=== PATIENT | female | born 1945 | race Caucasian/White ===

== ENCOUNTER 2018-06-23 07:24 | Day surgery (SDC) | payer OTHER ==
--- OUTSIDE RECORDS SUMMARY | 2018-06-23 07:29 | XMS REPORT | Clinical Summary ---
:1945 Author Organization [facility] Address [address] [place] [address] Care Team Providers Name Role Phone Oleksandr Gibson MD Primary Care Provider Allergies No Known Allergies Medications Medication Sig Dispensed Refills Start Date End Date Status lisinopril-hydrochlorothiazide 0 10/27/2017 Active (PRINZIDE,ZESTORETIC) 10-12.5 mg per tablet pantoprazole (PROTONIX) 40 MG EC 0 12/08/2017 Active tablet Active Problems Not on file Encounters Date Type Specialty Care Team Description 01/07/2018 Procedure visit Neurology Edouard Salgado Idiopathic peripheral neuropathy (Primary Dx); MD Sofia Numbness in feet Donald Duarte MD 12/30/2017 Hospital Encounter Radiology Edouard Salgado MD 12/30/2017 Office Visit Orthopedic Surgery Edouard Salgadoness in feet MD Sofia (Primary Dx) after 06/22/2017 Social History Tobacco Use Types Packs/Day Years Used Date Never Assessed Sex Assigned at Date Recorded Not on file Job Start Date Occupation Industry Not on file Not on file Not on file Travel History Travel Start Travel End No recent travel history available. Last Filed Vital Signs Vital Sign Reading Time Taken Blood Pressure - - Pulse - - Temperature - - Respiratory Rate - - Oxygen Saturation - - Inhaled Oxygen Concentration - - Weight 109 kg (240 lb) 12/30/2017 12:01 PM CDT Height 160 cm (5' 3") 12/30/2017 12:01 PM CDT Body Mass Index 42.51 12/30/2017 12:01 PM CDT Plan of Treatment Health Maintenance Due Date Last Done Comments BREAST CANCER SCREENING 08/26/1995 COLON CANCER SCREENING 08/26/1995 SHINGLES VACCINES (#1) 08/26/1995 65+ PNEUMOCOCCAL VACCINE (1 of 2 - PCV13) 2010 PNEUMOCOCCAL POLYSACCHARIDE VACCINE AGE 65 AND OVER 2010 INFLUENZA VACCINE 11/18/2017 Procedures Procedure Name Priority Date/Time Associated Diagnosis Comments XR LUMBAR SPINE Routine 12/30/2017 10:49 AM Numbness in feet Results for this COMPLETE W BENDING CDT procedure are in the results section. MRI SPINE EXTERNAL Routine 06/23/2017 11:20 AM Results for this STUDY LOTUS NOTES ADMINISTRATOR procedure are in the results section. after 06/22/2017 Results XR Lumbar Spine Complete W Flex and Ext (12/30/2017 10:49 AM CDT) Narrative Performed At 7 views of the lumbar spine are reviewed.These demonstrate a sagittal [facility] balance is slightly to the patient's left.Patient stands with a level pelvis.There is previous fusion from L4 to the sacrum which appears solid.Lateral view demonstrates sagittal balance that is slightly forward.The fusion from L4-S1 appears solid.There is marked disc degeneration at L3-L4 with a grade 1 spondylolisthesis and somewhat less anterolisthesis at L2-L3 as well as degeneration at L1-L2.There is no evidence of an acute fracture.Flexion-extension views demonstrate perhaps a mild exacerbation of the spondylolisthesis at L3-L4.Oblique views demonstrate a solid arthrodesis from L4 to the sacrum.There is facet joint osteoarthritis bilaterally at the more rostral levels of the lumbar spine Performing Organization Address [facility] Phone Number [facility] [address] [place] [address] MRI Spine External Study (06/23/2017 11:20 AM LOTUS NOTES ADMINISTRATOR) Narrative Performed At This exam was not acquired at a [facility] facility and has not been [facility] interpreted by a [facility] Provider.The exam was imported into our imaging system for comparisons purposes. Performing Organization Address City/[facility]/Zipcode Phone Number [facility] [address] [place] [address] after 06/22/2017 Insurance Payer Benefit Plan / Group Subscriber ID Type Phone Address MEDICARE MEDICARE PART A AND B xxxxxxxxxxx Medicare [place], [place] [employer] xxxxxxxx Commercial Advance Directives Patient has advance care planning documents on file. For more information, please contact:Luis M Welsh[address] [place] [address]
[2018-06-23] MEDS ORDERED: Ringers Lactate 1,000 ML IV ONE (08:08)
[2018-06-23] MEDS ORDERED: MIDAZOLAM HCL 2 MG/2 ML INJ ONE (09:09)
[2018-06-23] MEDS ORDERED: FENTANYL CITR 100 MCG/2 ML ONE (09:09)
[2018-06-23] MEDS ORDERED: LIDOCAINE 2% MPF 5 ML VIAL ONE (09:10)
[2018-06-23] MEDS ORDERED: PROPOFOL 200 MG/20 ML VIAL IV ONE (09:10)
[2018-06-23] MEDS ORDERED: LIDOCAINE 1.5% W/EPI AMP 5 ML ONE (09:24)
[2018-06-23] MEDS ORDERED: NA CHLORIDE 0.9% 1,000 ML ONE (09:24)
[2018-06-23] MEDS ORDERED: KETOROLAC 30 MG/ML INJ ONE (09:55)
--- NOTE | 2018-08-23 02:05 | OP ---
Date of Procedure: 06/23/2018 Surgeon: Janelle Galdamez MD Wealth Management Advisor: No assistants. Preoperative Diagnosis: Postmenopausal bleeding. Postoperative Diagnoses: Postmenopausal bleeding and endometrial mass. Procedures Performed: Hysteroscopy, dilation and curettage. Anesthesia: MAC plus paracervical block. Specimens: Endometrial curettings. Estimated Blood Loss: Minimal EBL. Complications: No complications. Drain: No drains. Condition: Stable. Findings: Right lateral posterior wall with irregular polypoid masses, possible carcinoma. Description Of Procedure: The patient is a 72-year-old with postmenopausal bleeding. Transvaginal u ltrasound showed thickened endometrium. Consented for endometrial cavity visualization and sampling to rule out atypia or malignancy. She was consented appropriately after appropriate preoperative car e was taken. She was re-consented in the preop, taken to the OR, and placed in supine fashion. Afte r MAC was given, she was placed in dorsal lithotomy position using Oleg stirrups. Pelvic exam perfo rmed. Exam difficult due to her body habitus. Speculum placed to expose the cervix. Prep x3 with B etadine was done after injecting the anterior lip with 1.5% lidocaine mixed with epinephrine 1:200,00 0 about 5 cc. Then at 4 and 8 o'clock positions, 3 cc each was given. A SlimLine diagnostic hystero scope was introduced through the cervical canal, traversed under direct visualization, and entered in to the uterine cavity. Right posterolateral mass was seen on the endometrial canal wall. There were multiple tiny polypoid masses and appeared to be irregular. Both the tubal ostia were visualized. Scope was removed. Curettings were performed with a #2 curette. Adequate sampling was obtained. Th e patient recovered from anesthesia and taken to the PACU in stable condition. EBL was minimal. Ins trument, needle, and sponge counts were correct before the end of the case. She will follow up with me in 1 week. VERONICA/AMANDA Voice ID: [id number] Report ID: [id number]
== END 2018-06-23 10:35 | disposition home or self-care (01) ==
LOC: OR 07:24
PROVIDERS: ATTEND Obstetrics & Gynecology
PROC: 0UJD8ZZ Inspection of Uterus and Cervix, Via Natural or Artificial Opening Endoscopic (ICD-10-PCS; 2018-06-23)
PROC: 0UDB7ZX Extraction of Endometrium, Via Natural or Artificial Opening, Diagnostic (ICD-10-PCS; principal; 2018-06-23 09:00)
DX: C54.1 Malignant neoplasm of endometrium (principal); N81.12 Cystocele, lateral; I10 Essential (primary) hypertension; J45.909 Unspecified asthma, uncomplicated; K21.9 Gastro-esophageal reflux disease without esophagitis; G47.30 Sleep apnea, unspecified; Z79.82 Long term (current) use of aspirin; Z79.899 Other long term (current) drug therapy; Z82.49 Family history of ischemic heart disease and other diseases of the circulatory system
CPT/HCPCS: 88305; 58558; J2704; J2250; J3010; J2001; J7030

== ENCOUNTER 2020-05-03 11:12 | Day surgery (SDC) | payer OTHER ==
--- OUTSIDE RECORDS SUMMARY | 2020-05-03 11:30 | XMS REPORT | Clinical Summary ---
:1945 Author Organization [facility] Address [address] [place] [id number] Care Team Providers Name Role Phone Oleksandr Gibson MD Primary Care Provider Allergies No Known Active Allergies Medications Medication Sig Dispensed Refills Start Date End Date Status lisinopril-hydrochlorothiazide 0 8 Active (PRINZIDE,ZESTORETIC) 10-12.5 mg per tablet pantoprazole (PROTONIX) 40 MG EC 0 018 Active tablet Active Problems Not on file Surgical History Surgery Date Site/Laterality Comments SPINE SURGERY Social History Tobacco Use Types Packs/Day Years Used Date Never Assessed Sex Assigned at Date Recorded Not on file Last Filed Vital Signs Not on file Plan of Treatment Health Maintenance Due Date Last Done Comments COVID-19 VACCINE (1 of 2) 1961 BREAST CANCER SCREENING 08/26/1995 COLONOSCOPY SCREENING 08/26/1995 SHINGLES VACCINES (#1) 08/26/1995 65+ PNEUMOCOCCAL VACCINE (1 of 1 - PPSV23) 2010 INFLUENZA VACCINE 11/19/2019 Results Not on fileafter 05/03/2019 Insurance Payer Benefit Plan / Subscriber ID Effective Phone Address T ype Group Dates MEDICARE MEDICARE PART [id number] [facility] [place] [place] A AND B nt [employer] [id number] 2017-[employer] marti Advance Directives For more information, please contact: [phone] Type Date Recorded Patient Sat Math Tutor Explanati on Advance Directives, Living Will and Medical Power of Injection Molding Machine Tender
--- OUTSIDE RECORDS SUMMARY | 2020-05-03 11:30 | XMS REPORT | Continuity of Care Document ---
:1945 Author Organization [facility] t Address [address] [place] [address] Care Team Providers Name Role Phone BRINA Primary Care Physician Unavailable SYSTEM, NOT IN Attending Clinician Unavailable BRINA Attending Clinician Unavailable Brina HERNANDEZ Attending Clinician Estephania DIALLO Attending Clinician MARIANA Attending Clinician Unavailable Payers Payer Name Policy Type Policy Number Effective Date Expiration Date S marco MEDICARE PART A [id number] 2010 AND B 00:00:00 FINN [id number] 2013 00:00:00 Problems Condition Condition Condition Status Onset Resolution Last Treating Co mments Source Name Details Category Date Date Treatment Clinician Date Primary Primary Disease Active osteoarthr osteoarthr 12-04 An derso itis of itis of 00:00: n left knee left knee 00 Urinary Urinary Disease Active 2019-0 incontinen incontinen 12-04 An derso ce ce 00:00: n 00 Urgent Urgent Disease Active 2019- desire to desire to 12-04 Andrey rso urinate urinate 00:00: n 00 Herniation Herniation Disease Active 2020-0 M D of rectum of rectum 12-04 Andrey rso into into 00:00: n vagina vagina 00 History of History of Disease Active 2019 M D malignant malignant 12-09 Andrey rso neoplasm neoplasm 00:00: n of of 00 endometriu endometriu m m Postoperat Postoperat Disease Active M D aurora visit aurora visit 08-13 Andrey rso 00:00: n 00 Hypertensi Hypertensi Disease Active M D on on 07-22 Anderso 00:00: n 00 Sleep Sleep Disease Active apnea apnea 07-22 Anderso 00:00: n 00 Gastroesop Gastroesop Disease Active M D hageal hageal 07-22 Anderso reflux reflux 00:00: n disease disease 00 Malignant Malignant Disease Active neoplasm neoplasm 07-06 Dagoberto o of of 00:00: n endometriu endometriu 00 m m Idiopathic Idiopathic Disease Active M D peripheral peripheral 04-20 An derso neuropathy neuropathy 00:00: n 00 Contusion Contusion Diagnosis Active [facility], [facility] initial initial l encounter encounter Outp ati ent Clinics Primary Primary Problem Active [facility] osteoarthr osteoarthr Cheryl kes - itis of itis of Memoria left knee left knee l Outpati ent Clinics Pain, Pain, Diagnosis Active [facility] joint, joint, [facility], [facility] right right l Outpati ent Clinics History of History of Problem Resolve [facility] asthma asthma d [facility] [place] [facility] History of History of Problem Resolve [facility] Gastric Gastric d ity of reflux reflux [place] [facility] History of History of Problem Resolve [facility] hypertensi hypertensi d it y of on on [place] [facility] Transfusio Transfusio Problem Resolve Univers n history n history d [facility] [place] [facility] Cystocele, Cystocele, Problem Active U nivers lateral lateral [facility] [place] [facility] Incomplete Incomplete Problem Active U nivers uterovagin uterovagin it y of al al [place] prolapse prolapse Physic i ans Cystocele, Cystocele, Problem Active U nivers midline midline it[facility] of [place] [facility] Enterocele Enterocele Problem Active U nivers [facility] [place] [facility] Fecal Fecal Problem Active Univers smearing smearing [facility] [place] [facility] Urinary Urinary Problem Active [facility] frequency frequency [facility] [place] [facility] Post-opera Post-opera Problem Active U nivers tive state tive state it y of [place] [facility] Allergies, Adverse Reactions, Alerts Allergy Allergy Status Severity Reaction(s) Onset Inactive Treating Comm ents Source Name Type Date Date Clinician Dartonicet Adverse Active Info Not [facility] -N 100 Reaction Available [facility] MORPHINE Adverse Active Info Not [facility] Reaction Available [facility] Sudafed Adverse Active Info Not [facility] Reaction Available [facility] Phenerga Adverse Active Info Not [facility] Percocet Adverse Active Info Not [facility] Keflex Adverse Active Info Not [facility] Reaction [facility] Claritin Adverse Active Info Not [facility] -D 12 Reaction Available [facility] Claritin drug Active [facility] allergy [facility] [place] [facility] Darvocet drug Active Univers -N 50 allergy ity of TABS [place] [facility] Keflex drug Active Univers TABS allergy [facility] [place] [facility] morphine drug Active [facility] allergy [facility] [place] [facility] Percocet drug Active Univers TABS allergy [facility] [place] [facility] Phenerga drug Active Univers n TABS allergy [facility] [place] [facility] Sudafed drug Active [facility] allergy [facility] [place] [facility] Family History Family Member Diagnosis Comments Start Date Stop Date Source Unknown Family Family history Family History Un iversity of Member of [facility] ns disorder Natural daughter -Other cancer MD Alba zelaya Social History Social Habit Start Date Stop Date Quantity Comments Source Sex Assigned At F MD [place] on Tobacco use and 2019-12-05 2019-12-05 Never used MD [place] on exposure 00:00:00 00:00:00 Alcohol intake 2019-12-05 2019-12-05 Current MD [place] n 00:00:00 00:00:00 non-drinker of alcohol (finding) Smoking Status Start Date Stop Date Source Never smoker MD Gu Medications Ordered Filled Start Stop Current Ordering Indication Dosage Frequency Signature Comments Components Source Medication Medication Date Date Medication? Clinician (SIG) Name Name UNABLE TO 2020 2020- No daily. MD LADD 12-04 Tita 16:40: 00:00 n 36 :00 fexofenadin Yes daily. MD castle (WENDY 12-04 Anderso ALLERGY) 16:40: n 180 mg 21 tablet ASPIRIN LOW 2020-0 Yes daily. MD DOSE ORAL 8-17 Anderso 16:40: n 21 omega 2020-0 Yes daily. 3-dha-epa-f 8-17 Andlayo blayne oil 16:40: n (FISH OIL) 21 1,000 mg (120 mg-180 mg) cap gabapentin 2020-0 Yes 3 (three) (NEURONTIN) 8-17 times a Francesco so 800 mg 16:40: day. n tablet 21 niacin 500 2020-0 Yes twice MD mg tablet 8-17 daily. Anderso 16:40: n 21 lisinopril- 2020-0 Yes daily. hydrochloro 8-17 Anderso thiazide 16:40: n (PRINZIDE,Z 21 ESTORETIC) 20-12.5 mg per tablet acetaminoph 2020-0 Yes at en (TYLENOL 8-17 bedtime. Andrey rso EXTRA 16:40: n STRENGTH 21 ORAL) cholecalcif 2020-0 Yes twice james, 8-17 daily. Tita vitamin D3, 16:40: n (VITAMIN 21 D3) 1,000 unit capsule cyanocobala 2020-0 Yes 1000ug Take 1,000 MD min 8-17 mcg by Tita (vitamin 16:40: mouth n B-12) 1000 21 daily. mcg tablet famotidine 2020-0 Yes daily. (PEPCID) 40 7-19 Anderso mg tablet 00:00: n 00 pantoprazol 2020-0 Yes daily. MD castle 2-24 Tita (PROTONIX) 19:18: n 40 mg EC 29 tablet traMADol traMADol Yes FRANCISCO TAKE 1 Univers HCl - 50 MG HCl - 50 MG 3-29 MARIANA M.D. TABLET ity of Oral Tablet Oral Tablet 00:00: EVERY 6 [place] 00 HOURS Physici NEEDED FOR ans POST OPERATIVE PAIN. Colace 100 Colace 100 Yes FRANCISCO Q0.5D TAKE 1 Univers MG Oral MG Oral 3-28 MARIANA M.D. CAPSULE i ty of Capsule Capsule 00:00: TWICE [place] 00 DAILY. Physici ans Ibuprofen Ibuprofen Yes FRANCISCO 1 Q6H TAKE 1 Univers 600 MG Oral 600 MG Oral 3-28 MARIANA M.D. TABLET ity of Tablet Tablet 00:00: EVERY 6 [place] 00 HOURS PRN Physici pain ans Ondansetron Ondansetron Yes FRANCISCO Q4H TAKE 1 Univers HCl - 4 MG HCl - 4 MG 3-28 MARIANA M.D. TABLET ity of Oral Tablet Oral Tablet 00:00: EVERY 4 [place] 00 HOURS PRN Physici nausea ans pantoprazol Yes [place] e 8-21 [facility] (PROTONIX) 00:00: st 40 MG EC 00 tablet lisinopril- Yes [place] hydrochloro 7-10 [facility] thiazide 00:00: st (PRINZIDE,Z 00 ESTORETIC) 10-12.5 mg per tablet Aspir-81 Aspir-81 Yes Dionte [address] [facility] Pantoprazol Pantoprazol Yes Dionte not [facility] e Sodium e Sodium Ledezma defined Cheryl kes - [facility] Wendy Wendy Yes Dionte not [facility] defined [facility]ics Fish Oil Fish Oil Yes Dionte [address] [facility] Lisinopril- Lisinopril- Yes Dionte not [facility] Hydrochloro Hydrochloro [place]ede[place]ma defined [facility] - thiazide thiazide [facility] Tylenol Tylenol Yes Dionte [address] [facility] [place] as needed [facility] Vitamin B12 Vitamin B12 Yes Dionte [address] [facility] Vitamin D3 Vitamin D3 Yes Dionte [address] [facility] Gabapentin Gabapentin Yes Dionte not [facility] defined [facility] Niacin ER Niacin ER Yes Dionte [address] [facility] [place] with food [facility] Gabapentin Gabapentin Yes Uni vers 800 MG Tab 800 MG Tab ity of (OR) - (OR) - [place] [id number] P hysici ivated ivated ans Aspirin Low Aspirin Low Yes U nivers Dose 81 MG Dose 81 MG ity of TABS TABS [place] [facility] Lisinopril- Lisinopril- Yes U nivers hydroCHLORO hydroCHLORO i ty of thiazide thiazide [place] 20-12.5 MG 20-12.5 MG Phy sici Oral Tablet Oral Tablet a ns Pantoprazol Pantoprazol Yes U nivers e Sodium 40 e Sodium 40 i ty of MG Oral MG Oral [place] Tablet Tablet Physici Delayed Delayed ans Release Release Fish Oil Fish Oil Yes Univers CAPS CAPS ity of [place] [facility] Vitamin D-3 Vitamin D-3 Yes U nivers TABS TABS ity of [place] [facility] Vitamin Vitamin Yes Univers B-12 TABS B-12 TABS ity o f [place] [facility] Wendy 180 Wendy 180 Yes U nivers MG TABS MG TABS ity of [place] [facility] Niacin TABS Niacin TABS Yes U nivers [facility] [place] [facility] Tylenol 500 Tylenol 500 Yes U nivers MG CAPS MG CAPS ity of [place] [facility] Vital Signs Vital Name Observation Time Observation Value Comments Source Systolic blood 2019-12-05 133 mm[Hg] MD Gu pressure 16:28:19 Diastolic blood 2019-12-05 77 mm[Hg] MD Gu pressure 16:28:19 Heart rate 2019-12-05 106 /min MD Gu 16:28:19 Body temperature 2019-12-05 37.11 Lita MD Gu 16:28:19 Respiratory rate 2019-12-05 18 /min MD Gu 16:28:19 Body weight 2019-12-05 107 kg MD Gu 16:28:19 BMI 2019-12-05 44.83 kg/m2 MD Gu 16:28:19 Oxygen saturation 2019-06-13 98 /min MD Tita liz in Arterial blood 19:00:44 by Pulse oximetry BP Systolic 2018-10-15 132 mm[Hg] Location: [facility] 10:55:00 Position: [place] Physician s Sitting BP Diastolic 2018-10-15 81 mm[Hg] Location: [facility] 10:55:00 Position: [place] Physician s Sitting Height 2018-10-15 64 [in_us] [facility] 10:55:00 [place] [facility] s Weight 2018-10-15 242 [lb_av] [facility] 10:55:00 [place] [facility] s Body Mass Index 2018-10-15 41.54 kg/m2 University o f Calculated 10:55:00 [place] [facility] s Temperature 2018-10-15 98 [degF] Method: Oral [facility] 10:55:00 [place] [facility] s Heart Rate 2018-10-15 102 /min Location: L [facility] 10:55:00 Brachial [place] [facility] s Artery; BP Systolic 2018-09-10 138 mm[Hg] Location: [facility]; [facility] :51:00 Position: [place] Physician s Sitting BP Diastolic 2018-09-10 82 mm[Hg] Location: [facility]; [facility] 10:51:00 Position: [place] Physician s Sitting Height 2018-09-10 64 [in_us] University 10:51:00 [place] [facility] s Weight 2018-09-10 240 [lb_av] University of 10:51:00 [place] [facility]ician s Body Mass Index 2018-09-10 41.2 kg/m2 University o f Calculated 10:51:00 [place] [facility] s Temperature 2018-09-10 98.6 [degF] Method: Oral [facility] 10:: [place] [facility] s Heart Rate 2018-09-10 90 /min Location: L [facility] 10:51:00 Brachial [place] [facility] s Artery; BP Systolic 2018-08-13 135 mm[Hg] Location: [place]; [facility] :52:00 Position: [place] Physician s Sitting BP Diastolic 2018-08-13 74 mm[Hg] Location: [place]; [facility] :52:00 Position: [place] Physician s Sitting Height 2018-08-13 64 [in_us] University of 10:52:00 [place] [facility] s Weight 2018-08-13 240 [lb_av] University of 10:52:00 [place] [facility] s Body Mass Index 2018-08-13 41.2 kg/m2 University o f Calculated 10:52:00 [place] [facility] s Temperature 2018-08-13 98.9 [degF] Method: Oral University of 10:52:00 [place] [facility] s Heart Rate 2018-08-13 93 /min Location: R [facility] 10:52:00 Brachial [place] [facility] s Artery; BP Systolic 2018-07-15 128 mm[Hg] Location: [place]; [facility] :32:00 Position: [place] Physician s Sitting BP Diastolic 2018-07-15 60 mm[Hg] Location: [place]; [facility] :32: Position: [place] Physician s Sitting Temperature 2018-07-15 98 [degF] University :32:00 [place] [facility] s Height 2018-07-15 64 [in_us] University of :32:00 [place] [facility] s Weight 2018-07-15 238 [lb_av] University of 14:32:00 [place] Phys[facility] s Body Mass Index 2018-07-15 40.85 kg/m2 University o f Calculated 14:32:00 [place] Physician s BP Systolic 2018-07-13 108 mm[Hg] Location: [facility]; [facility] 11:33:00 Position: [place] Physician s Sitting BP Diastolic 2018-07-13 64 mm[Hg] Location: [facility]; [facility] 11:33: Position: [place] Physician s Sitting Height 2018-07-13 64 [in_us] [facility] 11:33: [place] Physician s Weight 2018-07-13 238.5625 [lb_av] [facility] 11:33: [place] Physician s Body Mass Index 2018-07-13 40.95 kg/m2 University o f Calculated 11:33:00 [place] [facility] s Temperature 2018-07-13 98.3 [degF] [facility] 11:33: [place] Physician s Procedures Procedure Date / Time Performing Clinician Source Performed [QLH] CULTURE, URINE, 2018-07-13 00:00:00 [facility] ROUTINE Physicians History of Cholecystectomy [facility] Physicians History of Back surgery [facility] Physicians Plan of Care Planned Activity Planned Date Details Comments Source Future Scheduled 2019-11-19 INFLUENZA VACCINE [place] [facility] 00:00:00 [code = INFLUENZA VACCINE] Future Scheduled 2010 65+ PNEUMOCOCCAL [place] [facility] 00:00:00 VACCINE (1 of 1 - PPSV23) [code = 65+ PNEUMOCOCCAL VACCINE (1 of 1 - PPSV23)] Future Scheduled 1995-08-26 [facility]EN[facility] [code = BREAST CANCER SCREENING] Future Scheduled 1995-08-26 COLONOSCOPY SCREENING [facility]ain Test 00:00:00 [code = COLONOSCOPY SCREENING] Future Scheduled 1995-08-26 SHINGLES VACCINES (#1) [place] [facility] 00:00:00 [code = SHINGLES VACCINES (#1)] Future Scheduled 1961 COVID-19 VACCINE (1 of [place] [facility] 00:00:00 2) [code = COVID-19 VACCINE (1 of 2)] Encounters Start End Encounter Admission Attending Care Care Encounter Source Date/Time Date/Time Type Type Clinicians Facility Department ID 2019-12-12 Outpatient SYSTEM, [facility] SARAY [id number] 11:27:18 PROVIDER Dagoberto liz 2019-10-11 Outpatient APPLE, SARAY MDA [id number] 15:17:08 PROVIDER Dagoberto liz 2020-12-03 2020-12-03 Outpatient DARA GONSALVES MDA MDA [id number] 00:00:00 00:00:00 ODELL liz 2019-12-05 2019-12-05 Outpatient DARA GONSALVES MDA MDA [id number] 11:24:50 11:24:50 ODELL liz 2018-10-15 2018-10-15 Appointmen CATHIE PEÑA Urogynecolo [id number] Univers 11:00:00 11:00:00 t; FRANCISCO PEÑA gy Center - ity neris SINGH M.D. [facility] Physici ans 2018-09-28 2018-09-28 [facility] [id number] [facility] 15:05:00 15:05:00 t [facility] ent Clinics 2018-09-10 2018-09-10 Appointmen CATHIE PEÑA UroGynecolo [id number] Univers 11:00:00 11:00:00 t; FRANCISCO PEÑA gy Center it y neris SINGH M.D. [facility] Anni Physici ans 2018-08-13 2018-08-13 Appointmen CATHIE PEÑA UroGynecolo [id number] Univers 11:00:00 11:00:00 t; FRANCISCO PEÑA gy Center it y neris SINGH M.D. [facility] Anni Physici ans 2018-07-27 2018-07-27 Appointmen CATHIE PEÑA UTP [id number] Univers 10:30:00 10:30:00 t; FRANCISCO PEÑA ity of BRANDON, M.D. [place] M.D. Physici ans 2018-07-27 2018-07-27 Outpatient MHFB [facility]FB [id number] [facility] 05:19:00 05:19:00 2018-07-15 2018-07-15 Appointmen CATHIE PEÑA UroGynecolo [id number] Univers 14:50:00 14:50:00 t; FRANCISCO PEÑA gy Center it y of Anni SINGH [facility] Anni Physici ans 2018-07-15 2018-07-15 Appointmen MARIANACATHIE UroGynecolo [id number] Univers 14:30:00 14:30:00 t; FRANCISCO PEÑA gy Center it y of Anni SINGH [facility] Anni Physici ans 2018-07-13 2018-07-13 Appointmen MARIANA CATHIE UroGynecolo [id number] Univers 11:20:00 11:20:00 t; FRANCISCO PEÑA gy Center it y of Anni SINGH [facility] Anni Physici ans Results Test Description Test Time Test Comments Results Result Comments Source [[facility]] CULTURE, URINE, ROUTINE 2018-07-13 14:56:01 Test Item Value Reference Range Interpretation Comme nts FINAL REPORT (test code = FINAL REPORT) No Growth [facility][O] Urine Dipstick (In Office)2018-07-13 13:10:00 Test Item Value Reference Range Interpretation Comments Glucose (test code = Glucose) neg N LEUKOCYTES (test code = LEUKOCYTES) neg N NITRITE; Normal (test code = 16108-4) neg N UROBILINOGEN; Normal (test code = 0.2 N 11872-5) PROTEIN; Normal (test code = 47738-6) neg N pH (test code = pH) 7.5 N URINE BLOOD; Normal (test code = neg N 32281-5) SPECIFIC GRAVITY; Normal (test code = 1.015 N 2965-2) KETONES; Normal (test code = 26086-6) neg N BILIRUBIN; Normal (test code = 76625-0) neg N [facility]
[2020-05-03] MEDS ORDERED: Ringers Lactate 1,000 ML IV ONE (12:07)
[2020-05-03] MEDS ORDERED: propofoL 200 MG/20 ML VIAL IV ONE (14:41)
[2020-05-03] MEDS ORDERED: FENTANYL CITR 100 MCG/2 ML ONE (14:41)
[2020-05-03] MEDS ORDERED: LIDOCAINE 1% MPF 5 ML VIAL ONE (14:41)
--- NOTE | 2020-05-03 15:09 | P.OP ---
Preoperative diagnosis: RIGHT pubic Infected Cyst Postoperative diagnosis: RIGHT pubic Infected Cyst Primary procedure: Wide local excision of RIGHT pubic Infected Cyst Secondary procedure: Application of GIRISH Negative pressure wound therapy Anesthesia: GETA + Local Estimated blood loss: <5cc Specimen: debridement tissue Findings: indurated, infected right groin pubic cyst Complications: None Drain(s): Other (GIRISH with iodoform wick) Implants: iodoform with girish Transferred to: Recovery Room Condition: Good
[2020-05-03] MEDS ORDERED: ONDANSETRON 4 MG/2 ML VIAL ONE (15:10)
[2020-05-03 15:32] VITALS: O2SAT 98
[2020-05-03 16:09] VITALS: BP 128/62; TEMP 97.2
[2020-05-03] MEDS ORDERED: CODEINE 30MG/APAP 300MG TAB ONE (16:13)
--- NOTE | 2020-05-03 18:06 | OP ---
Date of Procedure: 05/03/2020 Surgeon: Karl Arias MD, Preoperative Diagnosis: Right pubic infected cyst. Postoperative Diagnosis: Right pubic infected cyst. Procedures Performed: 1.A wide local excision of right pubic infected cyst. 2.Complication of GIRISH negative pressure wound therapy. Anesthesia: General endotracheal plus local with 0.25% Marcaine without epinephrine. Estimated Blood Loss: Less than 5 cc. Specimen: Debridement tissue. Findings: Indurated right groin pubic cyst. Complications: None. Drains: Iodoform wick was placed with GIRISH negative pressure wound therapy on top of wound. Implants: Iodoform packing quarter-inch with GIRISH negative pressure wound therapy as above. Disposition: The patient was transferred to recovery room in good condition. Procedure In Detail: After informed consent was obtained, the patient was brought to the operating r oom, prepped and draped in the usual sterile fashion. After adequate anesthesia was achieved, a curv ilinear incision was made over an area of induration in the right pubic/inguinal crease area down thr ough subcutaneous tissues with electrocautery and dissected down around an infected cystic structure. This had evidence of inflammation and a wound on top with previous drainage occurring. The area wa s removed in its entirety and sent off for pathologic examination. The wound bed was then irrigated copiously and hemostasis was achieved with electrocautery. At this point, I reapproximated the edges of the wound with a 2-0 nylon suture in interrupted fashion and placed a quarter-inch iodoform wick into the wound and placed the GIRISH negative pressure wound therapy device over the top and applied th e device successfully. The patient tolerated the procedure well without evidence of complication and transferred to PACU in good condition. All counts were correct at the end of the case. TK/MODL Voice ID: [id number] Report ID: [id number]
== END 2020-05-03 16:29 | disposition home or self-care (01) ==
LOC: OR 11:12
PROVIDERS: ATTEND Surgery
PROC: 0JBC0ZZ Excision of Pelvic Region Subcutaneous Tissue and Fascia, Open Approach (ICD-10-PCS; principal; 2020-05-03 15:00)
DX: L72.8 Other follicular cysts of the skin and subcutaneous tissue (principal); Z20.822 Contact with and (suspected) exposure to COVID-19
CPT/HCPCS: 87070; 87205; 88304; 87075; 87077 ×2; 87186 ×2; 49204; U0002; J2704; J3010; J7120; J2405; 88305

== ENCOUNTER 2020-05-05 17:50 | Emergency (ER) | payer OTHER ==
--- OUTSIDE RECORDS SUMMARY | 2020-05-05 17:53 | XMS REPORT | Clinical Summary ---
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
--- OUTSIDE RECORDS SUMMARY | 2020-05-05 17:54 | XMS REPORT | Continuity of Care Document ---
:1945 Author Organization [facility] t Address [address] [place] [address] Care Team Providers Name Role Phone BRINA Primary Care Physician Unavailable SYSTEM, NOT IN Attending Clinician Unavailable BRINA Attending Clinician Unavailable Brina HERNANDEZ Attending Clinician Estephania DIALLO Attending Clinician MARIANA Attending Clinician Unavailable Payers Payer Name Policy Type Policy Number Effective Date Expiration Date S marco MEDICARE PART A [id number] 2010 AND B 00:00:00 FINN [id number] 2013 00:00:00 Problems Condition Condition Condition Status [...] -N 100 Reaction Available [facility] MORPHINE Adverse Active Info Not [facility] Reaction Available [facility] Sudafed Adverse Active Info Not [facility] Reaction Available [facility] Phenerga Adverse Active Info Not [facility] Percocet Adverse Active Info Not [facility] Keflex Adverse Active Info Not [facility] Reaction [facility] Claritin Adverse Active Info Not [facility] t -D 12 Reaction Available [facility] Claritin drug Active Univers allergy ity of [place] [facility] Darvocet drug Active Univers -N 50 allergy ity of TABS [place] [facility] Keflex drug Active Univers TABS allergy ity of [place] [facility] morphine drug Active Univers allergy ity of [place] [facility] Percocet drug Active Univers TABS allergy ity of [place] [facility] Phenerga drug Active Univers n TABS allergy ity of [place] [facility] Sudafed drug Active Univers allergy ity of [place] [facility] Family History Family Member Diagnosis Comments Start Date Stop Date Source Unknown Family Family history Family History Un iversity of Member of [place] ns disorder Natural daughter -Other cancer MD [...] Gabapentin Yes Dionte not C [facility] defined [facility] Niacin ER Niacin ER Yes Dionte [address] [facility] with food [facility] Gabapentin Gabapentin Yes Uni vers 800 MG Tab 800 MG Tab ity of (OR) - (OR) - [place] [id number] P hysici ivated ivated ans Aspirin Low Aspirin Low Yes U nivers Dose 81 MG Dose 81 MG ity of TABS TABS [place] [facility] Lisinopril- Lisinopril- Yes U nivers hydroCHLORO hydroCHLORO i ty of thiazide thiazide [place] 20-12.5 MG 20-12.5 MG Phy sici Oral Tablet Oral Tablet a ns Pantoprazol Pantoprazol Yes U nivers e Sodium 40 e Sodium 40 i ty of MG Oral MG Oral [place] Tablet Tablet Physici Delayed Delayed ans Release Release Fish Oil Fish Oil Yes Univers CAPS CAPS ity of [place] [facility] Vitamin D-3 Vitamin D-3 Yes U nivers TABS TABS ity of [place] [facility] Vitamin Vitamin Yes Univers B-12 TABS B-12 TABS ity o f [place] [facility] Wendy 180 Wendy 180 Yes U nivers MG TABS MG TABS ity of [place] [facility] Niacin TABS Niacin TABS Yes U nivers ity of [place] [facility] Tylenol 500 Tylenol 500 Yes U nivers MG CAPS MG CAPS ity of [place] [facility] Vital Signs Vital Name Observation [...] oximetry BP Systolic 2018-10-15 132 mm[Hg] Location: [facility] 10:55:00 Position: [place] Physician s Sitting BP Diastolic 2018-10-15 81 mm[Hg] Location: [facility] 10:55:00 Position: [place] Physician s Sitting Height 2018-10-15 64 [in_us] [facility] 10:55:00 [place] Physician s Weight 2018-10-15 242 [lb_av] [facility] 10:55:00 [place] Physician s Body Mass Index 2018-10-15 41.54 kg/m2 University o f Calculated 10:55:00 [place] Physician s Temperature 2018-10-15 98 [degF] Method: Oral [facility] 10:55:00 [place] Phys[facility] s Heart Rate 2018-10-15 102 /min Location: L [facility] 10:55:00 Brachial [place] [facility] Artery; BP Systolic 2018-09-10 138 mm[Hg] [place] [facility] [facility] :51:00 Position: [place] Physician s Sitting BP Diastolic 2018-09-10 82 mm[Hg] [place]: [facility] [facility] 10:51:00 Position: [place] Physician s Sitting Height 2018-09-10 64 [in_us] University 10:51:00 [place] [facility] s Weight 2018-09-10 240 [lb_av] University of 10:51:00 [place] [facility]ician s Body Mass Index 2018-09-10 41.2 kg/m2 University o f Calculated 10:51:00 [place] Physician s Temperature 2018-09-10 98.6 [degF] Method: Oral [facility] 10:: [place] [facility] Heart Rate 2018-09-10 90 /min Location: L [facility] 10:51:00 Brachial [place] [facility]ician s Artery; BP Systolic 2018-08-13 135 mm[Hg] Location: [place]; [facility] :52:00 Position: [place] Physician s Sitting BP Diastolic 2018-08-13 74 mm[Hg] Location: [place]; [facility] :52:00 Position: [place] Physician s Sitting Height 2018-08-13 64 [in_us] University of 10:52:00 [place] Physician s Weight 2018-08-13 240 [lb_av] University of 10:52:00 [place] [facility] s Body Mass Index 2018-08-13 41.2 kg/m2 University o f Calculated 10:52:00 [place] Physician s Temperature 2018-08-13 98.9 [degF] Method: Oral [facility] of 10:52:00 [place] [facility] Heart Rate 2018-08-13 93 /min Location: R [facility] 10:52:00 Brachial [place] [facility]ician s Artery; BP Systolic 2018-07-15 128 mm[Hg] Location: [place]; [facility] :32:00 Position: [place] Physician s Sitting BP Diastolic 2018-07-15 60 mm[Hg] Location: [place]; [facility] :32: Position: [place] Physician s Sitting Temperature 2018-07-15 98 [degF] University :32:00 [place] [facility] Height 2018-07-15 64 [in_us] University of :32:00 [place] [facility] s Weight 2018-07-15 238 [lb_av] University of 14:32:00 [place] [facility] s Body Mass Index 2018-07-15 40.85 kg/m2 University o f Calculated 14:32:00 [place] Physician s BP Systolic 2018-07-13 108 mm[Hg] [place]: [facility] [place] [facility] 11:33:00 Position: [place] Physician s Sitting BP Diastolic 2018-07-13 64 mm[Hg] [place]: [facility] [facility] 11:33: Position: [place] Physician s Sitting Height 2018-07-13 64 [in_us] [facility] 11:33: [place] [facility]ician s Weight 2018-07-13 238.5625 [lb_av] [facility] 11:33: [place] Physician s Body Mass Index 2018-07-13 40.95 kg/m2 University o f Calculated 11:33:00 [place] [facility]ician s Temperature 2018-07-13 98.3 [degF] [facility] 11:33: [place] Physician s Procedures Procedure Date / Time Performing Clinician Source Performed [QLH] CULTURE, URINE, 2018-07-13 00:00:00 [facility] ROUTINE Physicians History of Cholecystectomy [facility] Physicians History of Back surgery [facility] Physicians Plan of Care Planned Activity Planned Date Details Comments Source Future Scheduled 2019-11-19 INFLUENZA VACCINE [facility] 00:00:00 [code = INFLUENZA VACCINE] Future Scheduled 2010 65+ PNEUMOCOCCAL [facility] 00:00:00 VACCINE (1 of 1 - PPSV23) [code = 65+ PNEUMOCOCCAL VACCINE (1 of 1 - PPSV23)] Future Scheduled 1995-08-[address] [facility]00 SCREENING [code = BREAST CANCER SCREENING] Future Scheduled 1995-08-26 COLONOSCOPY SCREENING [facility] 00:00:00 [code = COLONOSCOPY SCREENING] Future Scheduled 1995-08-26 SHINGLES VACCINES (#1) [place] [facility] 00:00:00 [code = SHINGLES VACCINES (#1)] Future Scheduled 1961 COVID-19 VACCINE (1 of [facility] [place] [facility] 00:00:00 2) [code = COVID-19 VACCINE (1 of 2)] Encounters Start End Encounter Admission Attending Care Care Encounter Source Date/Time Date/Time Type Type Clinicians Facility Department ID 2019-12-12 Outpatient SYSTEM, [facility] SARAY [id number] 11:27:18 PROVIDER Dagoberto liz 2019-10-11 Outpatient APPLE, SARAY MDA [id number] 15:17:08 PROVIDER Dagoberto liz 2020-12-03 2020-12-03 Outpatient DARA GONSALVES MDA MDA [id number] 00:00:00 00:00:00 ODELL liz 2019-12-05 2019-12-05 Outpatient DARA GONSALVES MDA MDA [id number] 11:24:50 11:24:50 ODELL liz 2018-10-15 2018-10-15 Appointmen CATHIE PEÑA Urogynecolo [id number] Univers 11:00:00 11:00:00 t; FRANCISCO PEÑA gy Center - ity neris SINGH M.D. [facility] 2018-09-28 2018-09-28 [facility] [id number] 15:05:00 15:05:00 [facility] ent Clinics 2018-09-10 2018-09-10 Appointmen CATHIE PEÑA UroGynecolo [id number] Univers 11:00:00 11:00:00 t; FRANCISCO PEÑA gy Center it y neris SINGH M.D. [facility] Anni Physici ans 2018-08-13 2018-08-13 Appointmen CATHIE PEÑA UroGynecolo [id number] Univers 11:00:00 11:00:00 t; FRANCISCO PEÑA gy Center it y neris SINGH M.D. [facility] Anni Physici ans 2018-07-27 2018-07-27 Appointmen CATHIE PEÑA UTP [id number] Univers 10:30:00 10:30:00 t; FRANCISCO PEÑA ity of BRANDON, M.D. [place] M.D. Physici ans 2018-07-27 2018-07-27 Outpatient [facility] [id number] [facility] 05:19:00 05:19:00 2018-07-15 2018-07-15 Appointmen CATHIE PEÑA UroGynecolo [id number] Univers 14:50:00 14:50:00 t; FRANCISCO PEÑA gy Center it y of Anni SINGH [facility] Anni Physici ans 2018-07-15 2018-07-15 Appointmen MARIANACATHIE UroGynecolo [id number] Univers 14:30:00 14:30:00 t; FRANCISCO PEÑA gy Center it y of Anni SINGH [facility] Anni Physici ans 2018-07-13 2018-07-13 Appointmen MARIANA CATHIE UroGynecolo [id number] Univers 11:20:00 11:20:00 t; FRANCISCO PEÑA gy Center it y of Anni SINGH [facility] Anni Physici ans Results Test Description Test Time Test Comments Results Result Comments Source [[facility]] CULTURE, URINE, ROUTINE 2018-07-13 14:56:01 Test Item Value Reference Range Interpretation Comme nts FINAL REPORT (test code = FINAL REPORT) No Growth [facility] Physicians[O] Urine Dipstick (In Office)2018-07-13 13:10:00 Test Item Value Reference Range Interpretation Comments Glucose (test code = Glucose) neg N LEUKOCYTES (test code = LEUKOCYTES) neg N NITRITE; Normal (test code = 01452-5) neg N UROBILINOGEN; Normal (test code = 0.2 N 53241-7) PROTEIN; Normal (test code = 72860-8) neg N pH (test code = pH) 7.5 N URINE BLOOD; Normal (test code = neg N 77906-5) SPECIFIC GRAVITY; Normal (test code = 1.015 N 2965-2) KETONES; Normal (test code = 40301-8) neg N BILIRUBIN; Normal (test code = 36705-1) neg N [facility] Physicians
--- NOTE | 2020-05-05 22:50 | ER ---
Nurse's Notes [facility] Name: Naa Yeager Age: 74 yrs Sex: Female : 1945 Arrival Date: 05/05/2020 Time: 17:53 Bed 6 Private MD: Diagnosis: Wound Check-Abscess I\T\D Presentation: 05/05 18:17 Chief complaint: Patient states: I\T\D to abscess to R groin. Noticed drain is ll1 clogged since this afternoon. Brought a new cath. for us to insert. Dr. Arias. Coronavirus screen: Client denies travel out of the [place] in the last 14 days. At this time, the client does not indicate any symptoms associated with coronavirus-19. Ebola Screen: Patient denies travel to an Ebola-affected area in the 21 days before illness onset. Initial Sepsis Screen: Does the patient meet any 2 criteria? HR > 90 bpm. No. Patient's initial sepsis screen is negative. Does the patient have a suspected source of infection? Yes: Skin breakdown/wound. Risk Assessment: Do you want to hurt yourself or someone else? Patient reports no desire to harm self or others. 18:17 Method Of Arrival: Ambulatory ll1 18:17 Acuity: BRANDIE 4 ll1 18:19 Onset of symptoms was May 05, 2020. 1 Triage Assessment: 18:20 General: Appears in no apparent distress. Behavior is calm, cooperative, appropriate ll1 for age. Pain: Denies pain. Derm: Reports Clogged drain to R groin. Historical: - Allergies: 18:17 Morphine; ll1 18:17 Oxycodone HCl; ll1 18:17 PROPOXYPHENE; ll1 18:17 Pseudoephedrine; ll1 18:17 ACETAMINOPHEN; ll1 18:17 Cephalexin; ll1 18:17 loratadine; ll1 18:17 Promethazine; ll1 - PMHx: 18:17 Hypertension; GERD; Sleep Apnea; ll1 - PSHx: 18:17 Hysterectomy; spinal fusion; ll1 - Immunization history:: Flu vaccine is up to date. - Social history:: Smoking status: Patient denies any tobacco usage or history of. Screenin:10 Abuse screen: Denies threats or abuse. Denies injuries from another. Nutritional rr5 screening: No deficits noted. Tuberculosis screening: No symptoms or risk factors identified. Fall Risk Ambulatory Aid- Crutches/Cane/Walker (15 pts). Total [place]wood Fall Scale indicates No Risk (0-24 pts). Assessment: 22:10 General: Appears in no apparent distress. comfortable, Behavior is calm, cooperative, rr5 appropriate for age. 22:10 Pain: Denies pain. Neuro: Level of Consciousness is awake, alert, obeys commands, rr5 Oriented to person, place, time. Cardiovascular: Capillary refill < 3 seconds Patient's skin is warm and dry. Respiratory: Airway is patent Respiratory effort is even, unlabored, Respiratory pattern is regular, symmetrical. GI: No signs and/or symptoms were reported involving the gastrointestinal system. : No signs and/or symptoms were reported regarding the genitourinary system. EENT: No signs and/or symptoms were reported regarding the EENT system. Derm: Skin temperature is warm Wound noted right femoral area Wound is S/P I and D with wound vac dressing noted. Musculoskeletal: No signs and/or symptoms reported regarding the musculoskeletal system. 22:50 Reassessment: Patient appears in no apparent distress at this time. Patient is alert, rr5 oriented x 3, equal unlabored respirations, skin warm/dry/pink. discharge instruction given and explained without complaints made. Vital Signs: 18:17 BP 140 / 106; Pulse 100; Resp 18; Temp 98.6; Pulse Ox 96% ; Weight 113.4 kg; Height 5 ll1 ft. 3 in. (160.02 cm); Pain 0/10; 22:55 BP 153 / 75; Pulse 85; Resp 19; Pulse Ox 98% ; rr5 18:17 Body Mass Index 44.29 (113.40 kg, 160.02 cm) ll1 ED Course: 17:53 Patient arrived in ED. rg4 18:16 Arm band placed on. ll1 18:19 Triage completed. ll1 22:08 Kemar Malone RN is Primary Nurse. rr5 22:09 Juarez Ta MD is Attending Physician. mh7 22:10 Patient has correct armband on for positive identification. rr5 22:30 Wound care: to S/P I and D right femoral located on right femoral area was cleaned with rr5 with Ns, dressed with changed wound vac dressing by and brock DIALLO ( pt's own wound vac), Patient tolerated well. 22:48 Karl Arias MD is Referral Physician. 7 23:04 No provider procedures requiring assistance completed. Patient did not have IV access rr5 during this emergency room visit. Administered Medications: No medications were administered Outcome: 22:49 Discharge ordered by MD. 7 23:04 Discharged to home via wheelchair, with family. rr5 23:04 Condition: stable 23:04 Discharge instructions given to patient, Instructed on discharge instructions, follow up and referral plans. Demonstrated understanding of instructions, follow-up care. 23:04 Patient left the ED. rr5 Signatures: Pat Zamudio rg4 Kemar Malone RN RN rr5 Sarah Ballard RN RN ll1 Juarez Ta MD MD [facility]
--- NOTE | 2020-05-05 22:50 | EDPHYS ---
Physician Documentation [facility] Name: Naa Yeager Age: 74 yrs Sex: Female : 1945 Arrival Date: 05/05/2020 Time: 17:53 Bed 6 Private MD: ED Physician Juarez Ta HPI: 05/05 22:39 This 74 yrs old Female presents to ER via Ambulatory with complaints of mh7 Abscess Recheck - drainage problem. 22:39 Patient presents to ED for recheck of: abscess. The affected area is on the right mh7 groin. Previous treatment: The patient was initially treated 2 day(s) ago, the care was rendered at [facility], Treatment type: The patient's original treatment included an I\T\D, Outpatient prescription(s): The patient was given prescription(s) for nothing. Progress: The patient reports Wound Vac not draining. Patient had I\T\D of right groin abscess 2 days ago. Wound VAC was placed to area. She states that it has not drained.. Historical: - Allergies: 18:17 Morphine; ll1 18:17 Oxycodone HCl; ll1 18:17 PROPOXYPHENE; ll1 18:17 Pseudoephedrine; ll1 18:17 ACETAMINOPHEN; ll1 18:17 Cephalexin; ll1 18:17 loratadine; ll1 18:17 Promethazine; ll1 - PMHx: 18:17 Hypertension; GERD; Sleep Apnea; ll1 - PSHx: 18:17 Hysterectomy; spinal fusion; ll1 - Immunization history:: Flu vaccine is up to date. - Social history:: Smoking status: Patient denies any tobacco usage or history of. ROS: 22:39 Constitutional: Negative for fever, chills, and weight loss, Eyes: Negative for injury, mh7 pain, redness, and discharge, ENT: Negative for injury, pain, and discharge, Neck: Negative for injury, pain, and swelling, Cardiovascular: Negative for chest pain, palpitations, and edema, Respiratory: Negative for shortness of breath, cough, wheezing, and pleuritic chest pain, Abdomen/GI: Negative for abdominal pain, nausea, vomiting, diarrhea, and constipation, Back: Negative for injury and pain, : Negative for injury, bleeding, discharge, and swelling, MS/Extremity: Negative for injury and deformity, Neuro: Negative for headache, weakness, numbness, tingling, and seizure, Psych: Negative for depression, anxiety, suicide ideation, homicidal ideation, and hallucinations, Allergy/Immunology: Negative for hives, rash, and allergies, Endocrine: Negative for neck swelling, polydipsia, polyuria, polyphagia, and marked weight changes, Hematologic/Lymphatic: Negative for swollen nodes, abnormal bleeding, and unusual bruising. Exam: 22:39 Constitutional: This is a well developed, well nourished patient who is awake, alert, mh7 and in no acute distress. Head/Face: Normocephalic, atraumatic. Chest/axilla: Normal chest wall appearance and motion. Nontender with no deformity. No lesions are appreciated. Cardiovascular: Regular rate and rhythm with a normal S1 and S2. No gallops, murmurs, or rubs. Normal PMI, no JVD. No pulse deficits. Respiratory: Lungs have equal breath sounds bilaterally, clear to auscultation and percussion. No rales, rhonchi or wheezes noted. No increased work of breathing, no retractions or nasal flaring. Abdomen/GI: Soft, non-tender, with normal bowel sounds. No distension or tympany. No guarding or rebound. No evidence of tenderness throughout. Back: No spinal tenderness. No costovertebral tenderness. Full range of motion. 22:39 MS/ Extremity: Pulses equal, no cyanosis. Neurovascular intact. Full, normal range of motion. Neuro: Awake and alert, GCS 15, oriented to person, place, time, and situation. Cranial nerves II-XII grossly intact. Motor strength 5/5 in all extremities. Sensory grossly intact. Cerebellar exam normal. Normal gait. Psych: Awake, alert, with orientation to person, place and time. Behavior, mood, and affect are within normal limits. 22:39 Skin: Wound recheck: Abscess: the wound has improved, the packing is in place, Right groin portable wound VAC with gauze that is saturated with serosanguinous drainage. Wound with sutures and packing in place. No erythema,swelling. Mild serosanguinous discharge with palpation.. Vital Signs: 18:17 BP 140 / 106; Pulse 100; Resp 18; Temp 98.6; Pulse Ox 96% ; Weight 113.4 kg; Height 5 ll1 ft. 3 in. (160.02 cm); Pain 0/10; 22:55 BP 153 / 75; Pulse 85; Resp 19; Pulse Ox 98% ; rr5 18:17 Body Mass Index 44.29 (113.40 kg, 160.02 cm) ll1 MDM: 22:39 Differential diagnosis: cellulitis, Abscess, Wound recheck, Wound infection. Data [facility] reviewed: vital signs, nurses notes. Data interpreted: Pulse oximetry: on room air is 96 %. Interpretation: normal. Counseling: I had a detailed discussion with the patient and/or guardian regarding: the historical points, exam findings, and any diagnostic results supporting the discharge/admit diagnosis, the need for outpatient follow up, to return to the emergency department if symptoms worsen or persist or if there are any questions or concerns that arise at home. Response to treatment: the patient's symptoms have resolved after treatment, the patient's blood pressure is in an acceptable range, mental status has returned to baseline, the patient no longer shows bradycardia, the patient is not short of breath, the patient is not tachycardic, the patient's pain is gone, the patient's temperature has normalized. 22:49 Patient medically screened. [facility] 22:51 ED course: Patient came to ED with replacement portable wound VAC. Wound Vac applied to 7 area to right groin wound after cleaning with chlorhexidine. Green [place] signal received to device after placement.. Administered Medications: No medications were administered Disposition: 05/05/20 22:49 Discharged to Home. Impression: Wound Check-Abscess I\T\D. - Condition is Stable. - Discharge Instructions: Wound Check, Incision and Drainage, Care After. - Medication Reconciliation Form, Thank You Letter, Antibiotic Education, Prescription Opioid Use form. - Follow up: Karl Arias MD; When: 1 - 2 days; Reason: Worsening of condition, Recheck today's complaints, Continuance of care, Re-evaluation by your physician. - Problem is new. - Symptoms have improved. Signatures: Kemar Malone RN RN rr5 Sarah Ballard RN RN ll1 Juarez Ta MD MD 7 Corrections: (The following items were deleted from the chart) 23:04 22:49 05/05/2020 22:49 Discharged to Home. Impression: Wound Check-Abscess I\T\D. rr5 Condition is Stable. Forms are Medication Reconciliation Form, Thank You Letter, Antibiotic Education, Prescription Opioid Use. Follow up: Karl Arias; When: 1 - 2 days; Reason: Worsening of condition, Recheck today's complaints, Continuance of care, Re-evaluation by your physician. Problem is new. Symptoms have improved. 7
[2020-05-05 23:10] VITALS: TEMP 98.6
[2020-05-05 23:11] VITALS: BP 153/75; O2SAT 98
== END 2020-05-05 23:04 | disposition home or self-care (01) ==
LOC: ER 17:50
DX: Z48.01 Encounter for change or removal of surgical wound dressing (principal)
CPT/HCPCS: 99283